=== PATIENT | female | born 1970 | race Caucasian/White ===

== ENCOUNTER 2018-03-30 12:47 | Outpatient (CLI) | payer OTHER | END 2018-03-30 12:48 | disposition home or self-care (01) | LOC: BICMAMMO 12:47 | PROVIDERS: ATTEND Family Medicine | DX: Z12.31 Encounter for screening mammogram for malignant neoplasm of breast (principal); Z80.3 Family history of malignant neoplasm of breast | CPT/HCPCS: 77063; 77067 ==

== ENCOUNTER 2018-09-20 15:51 | Outpatient (CLI) | payer OTHER ==
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
== END 2018-09-20 15:52 | disposition home or self-care (01) ==
LOC: BICRAD 15:51
PROVIDERS: ATTEND Family Medicine
DX: M25.561 Pain in right knee (principal)

== ENCOUNTER 2018-12-28 15:44 | Outpatient (CLI) | payer OTHER ==
[2018-12-28 17:45] LABS: Hemoglobin 13.3 g/dL (12.0-16.0); Mean Corpuscular HGB CONC 32.8 g/dL (32.0-36.0); Mean Corpuscular Hemoglobin 29.5 pg (27.0-31.0); Mean Corpuscular Volume 90.2 fL (78.0-98.0); Mean Platelet Volume 8.8 fL (7.4-10.4); Platelet Count 268 thou/uL (130-400); RBC Distribution Width 12.8 % (11.5-14.5); White Blood Cell (WBC) Count 10.7 thou/uL (4.8-10.8)
[2018-12-28 17:49] LABS: Prothrombin Time 13.4 SEC (12.0-14.7)
[2018-12-28 18:05] LABS: Anion Gap 12 mmol/L (10-20); BUN (Urea Nitrogen) 13 mg/dL (7.0-18.7); Calc. Creatinine Clearance 0 mL/min (70-130); Calcium 9.4 mg/dL (7.8-10.44); Carbon Dioxide 24 mmol/L (22-29); Chloride 107 mmol/L (98-107); Estimated GFR-MDRD 75; Glucose 80 mg/dL (70-105); Potassium 3.8 mmol/L (3.5-5.1); Sodium 139 mmol/L (136-145)
[2018-12-28 18:08] LABS: Bilirubin Negative (Negative); Blood, Urine Large (Negative); Glucose, Urine (Dipstick) Negative (Negative); Leukocyte Negative (Negative); Nitrite Negative (Negative); Protein, Urine (Dipstick) 30 mg/dL (Neg-Trace); Urobilinogen 0.2 mg/dL (0.2-1.0); pH, Urine 7.5 (5.0-9.0)
[2018-12-28 18:09] LABS: Clarity Cloudy (Clear)
[2018-12-28 18:10] LABS: BHCG - Serum Negative (NEGATIVE); Pregs Control Background? CLEAR/WHITE (CLR/WHITE); Pregs Control Bar Appear? YES (CONTROL BAR)
[2018-12-28 18:49] LABS: RBC/HPF 21-50 HPF (0-3)
[2018-12-28 18:50] LABS: Bacteria/HPF 2+ HPF (None Seen); Hyaline Casts/LPF 0-3 HYALINE CAST LPF (0-3 Hyaline); Transitional Epithelial 0-3 HPF (0-3)
[2018-12-28 18:51] LABS: Renal Epithelial None Seen HPF (0-3)
--- NOTE | 2018-12-31 17:57 | EKG ---
Test Reason : Blood Pressure : / mmHG Vent. Rate : 094 BPM Atrial Rate : 094 BPM P-R Int : 126 ms QRS Dur : 082 ms QT Int : 348 ms P-R-T Axes : 070 067 035 degrees QTc Int : 435 ms Normal sinus rhythm Cannot rule out Anterior infarct , age undetermined Abnormal ECG No previous ECGs available Confirmed by SHAYLEE REESE (2) on 12/31/2018 5:56:57 PM Referred By: PUJA Confirmed By:SHAYLEE REESE
== END 2018-12-28 15:45 | disposition home or self-care (01) ==
LOC: LABBT 15:44
PROVIDERS: ATTEND Urology
DX: Z01.818 Encounter for other preprocedural examination (principal); N20.0 Calculus of kidney; E66.01 Morbid (severe) obesity due to excess calories
CPT/HCPCS: 80048; 81001; 84703; 85027; 85610; 85730; 87086; 93005; 93010

== ENCOUNTER 2019-01-24 12:52 | Day surgery (SDC) | payer OTHER ==
[2018-12-28 16:19] VITALS: BMI 48.5
[2019-01-24] MEDS ORDERED: Ondansetron PF 4 MG/2 ML Vial ONE (13:53)
[2019-01-24] MEDS ORDERED: Rocuronium Bromide 10 MG/ML (10ML VIAL) ONE (13:53)
[2019-01-24] MEDS ORDERED: Lidocaine 1% PF 5 ML VIAL ONE (13:53)
[2019-01-24] MEDS ORDERED: Glycopyrrolate 0.2 MG/ML 5 ML SYRINGE ONE (13:53)
[2019-01-24] MEDS ORDERED: Dexamethasone 20 MG/5 ML VIAL ONE (13:53)
[2019-01-24] MEDS ORDERED: PROPOFOL 200 MG/20 ML VIAL ONE (13:53)
[2019-01-24] MEDS ORDERED: Fentanyl 250 MCG/5 ML VIAL ONE (14:28)
[2019-01-24] MEDS ORDERED: Midazolam HCl 2 mg/2 ml Vial ONE (14:28)
--- NOTE | 2019-01-24 23:39 | OP ---
DATE OF PROCEDURE: 01/24/2019 SERVICES: Urology. PREOPERATIVE DIAGNOSIS: Left renal stone. POSTOPERATIVE DIAGNOSIS: Left renal stone. PROCEDURES PERFORMED: Left ureteroscopy, laser lithotripsy, basket extraction of stone, and placement of a 6 x 26 double-J stent on the left. INDICATION FOR PROCEDURE: Ms. Jara is a 48-year-old white female, who initially had presented with a left ureteral and renal stone from an outside ER. She ended up passing her left distal ureteral stone, but still had a 1 cm left renal stone. Due to the size of the stone, I recommended that this be treated due to her size as well was not a good option. Risks and benefits of surgery were discussed and she has agreed to proceed forward. DESCRIPTION OF PROCEDURE: After identification of armband and verification of consent, the patient was brought back to the operating room, where she underwent general anesthesia with endotracheal intubation. She was then placed in dorsal lithotomy position and prepped and draped in usual sterile fashion. After appropriate time-out, a lubricated 22-[place] rigid cystoscope was introduced per urethra into the bladder. Attention was turned toward the left ureteral orifice, which was cannulated with a 0.035 Sensor wire up to the level of renal pelvis. The cystoscope was then removed and a dual-lumen catheter was advanced over the Sensor wire up to the level of the proximal ureter. An Amplatz Super Stiff wire was then placed through the second lumen up to the level of renal pelvis. The dual-lumen catheter was then removed and an 11/13 x 36 cm ureteral access sheath was advanced over the Super Stiff wire up to the level of the proximal ureter. The inner cannula and Super Stiff wire were then removed leaving the outer sheath and Sensor wire in place as a safety wire. A flexible disposable digital ureteroscope was then passed through the ureteral access sheath up to the level of renal pelvis with the stone was immediately apparent. A 275 micron ball tip laser tip fiber was then used to fragment the stone into small pieces and upon completion of fragmentation of 1.9-[place] ZeroTip Nitinol basket was used to remove all fragments that were greater than 2 mm in size. Upon completion, all remaining fragments appeared to be in the 1-mm range or less. There was a significant amount of dust debris. Satisfied that the stone was completely fragmented. A full pyeloscopy was performed and no additional larger fragments were identified. Pull-back ureteroscopy was employed and no additional stones were found within the ureter. The ureteroscope and the sheath were then removed and the cystoscope was then backloaded over the Sensor wire back in the bladder. A 6 x 26 double-J stent was advanced over the Sensor wire up to level of the renal pelvis. The wire was removed leaving a good curl in the kidney and a good curl in the bladder. The bladder was then emptied and cystoscope removed. The patient was then awakened, taken to PACU for recovery in stable condition. COMPLICATIONS: None. ESTIMATED BLOOD LOSS: Minimal. RETAINED TUBES AND DRAINS: A 6 x 26 double-J stent on the left. SPECIMEN: Stone for stone analysis. DISPOSITION: The patient will be discharged home and follow up with me in approximately 1 week for cysto and stent removal in the office. Job ID: [id number]
[2019-01-30 10:16] LABS: CA Oxalate Monohydrate 10 % (.); CA Phosphate 80 % (.); Color Tan (.); Comment Note: (.); Mg Ammon Phos 10 % (.); Stone Weight 24.3 mg (.)
== END 2019-01-24 18:42 | disposition home or self-care (01) ==
LOC: SDC 12:52
PROVIDERS: ATTEND Urology
PROC: 0TF48ZZ Fragmentation in Left Kidney Pelvis, Via Natural or Artificial Opening Endoscopic (ICD-10-PCS; principal; 2019-01-24)
PROC: 0T778DZ Dilation of Left Ureter with Intraluminal Device, Via Natural or Artificial Opening Endoscopic (ICD-10-PCS; principal; 2019-01-24)
DX: N20.0 Calculus of kidney (principal); J45.909 Unspecified asthma, uncomplicated; E66.01 Morbid (severe) obesity due to excess calories; Z68.42 Body mass index [BMI] 45.0-49.9, adult; Z79.1 Long term (current) use of non-steroidal anti-inflammatories (NSAID); Z79.899 Other long term (current) drug therapy; Z88.2 Allergy status to sulfonamides; Z88.5 Allergy status to narcotic agent
CPT/HCPCS: 76000; 82365; 88300; J1100; J2001; J2250; J2405; J2704; J3010

== ENCOUNTER 2019-03-12 09:57 | Outpatient (CLI) | payer OTHER ==
--- NOTE | 2019-03-12 10:43 | ULT ---
Renal ultrasound: 03/12/2019 COMPARISON: None HISTORY: Left renal calculi TECHNIQUE: Multiplanar grayscale sonographic imaging of the kidneys and urinary bladder obtained. The right kidney measures 10.4 x 4.6 x 4.2 cm and the left kidney measures 11.8 x 5.0 x 5.7 cm. No di screte renal mass, hydronephrosis, or renal stone appreciated on this exam. The urinary bladder appears grossly unremarkable. IMPRESSION: Unremarkable renal ultrasound. KUB may be beneficial to evaluate for small renal calculi, which may be not visualized on ultrasound.
== END 2019-03-12 09:58 | disposition home or self-care (01) ==
LOC: BICULT 09:57
PROVIDERS: ATTEND Urology
DX: N20.0 Calculus of kidney (principal)
CPT/HCPCS: 76770

== ENCOUNTER 2019-04-01 11:02 | Outpatient (CLI) | payer OTHER ==
--- NOTE | 2019-04-01 12:57 | MMO ---
Bilateral MAMMO Bilat Screen [facility]. CLINICAL HISTORY: Patient is 48 years old and is seen for screening. The patient has the following family history of breast cancer: mother. The patient has no personal history of cancer. The patient has a history of bilateral Breast reduction in 2013 - benign. VIEWS: The views performed were: bilateral craniocaudal with tomosynthesis and bilateral mediolateral oblique with tomosynthesis. FILMS COMPARED: The present examination has been compared to a prior imaging study performed at [facility] on 03/30/2018. MAMMOGRAM FINDINGS: The breasts are almost entirely fat. There are no suspicious masses, suspicious calcifications, or new areas of architectural distortion. IMPRESSION: THERE IS NO MAMMOGRAPHIC EVIDENCE OF MALIGNANCY. A ROUTINE FOLLOW-UP MAMMOGRAM IN 1 YEAR IS RECOMMENDED. THE RESULTS OF THIS EXAM WERE SENT TO THE PATIENT. ACR BI-RADS Category 1 - Negative MAMMOGRAPHY NOTE: 1. A negative mammogram report should not delay a biopsy if a dominant of clinically suspicious mass is present. 2. Approximately 10% to 15% of breast cancers are not detected by mammography. 3. Adenosis and dense breasts may obscure an underlying neoplasm.
== END 2019-04-01 11:03 | disposition home or self-care (01) ==
LOC: BICMAMMO 11:02
PROVIDERS: ATTEND Family Medicine
DX: Z12.31 Encounter for screening mammogram for malignant neoplasm of breast (principal); Z80.3 Family history of malignant neoplasm of breast; Z98.890 Other specified postprocedural states
CPT/HCPCS: 77063; 77067